=== PATIENT | female | born 1980 | race Two or more races ===

== ENCOUNTER 2016-12-17 10:53 | Emergency (ER) | payer SELFPAY ==
[~2016-12-17] VITALS: Ht 160 cm; Wt 36.0 kg
[~2016-12-17 10:53] MED LIST: DIPH12.559 PO; MULT1TAB59 PO
[2016-12-17 11:00] VITALS: Ht 160 cm; Wt 36.0 kg
== END 2016-12-17 15:13 | disposition left against medical advice (07) ==
LOC: E/R 10:53
DX: Z53.21 Procedure and treatment not carried out due to patient leaving prior to being seen by health care provider (principal)